=== PATIENT | female | born 1965 | race Caucasian/White ===

== ENCOUNTER 2018-11-03 21:12 | Emergency (ER) | payer MEDICAID ==
[2018-11-03 21:25] VITALS: BP 137/97; PULSE 71; RESP 16; TEMP 98; O2SAT 98
--- NOTE | 2018-11-03 21:37 | C.PDOC ---
History Of Present Illness 52 y/o female, with history of diabetes and regularly checks sugar daily, well controlled, presents to ED stating that since yesterday, she has been having an itchy rash all over her body except her face. States she has been taking benadryl which has been helping. States she 5 days ago she applied a homemade pain relieving paste she made from crushed motrin but discontinued it when she noticed redness and irritation to the area. Patient is not aware of any known allergies. Denies wheezing, lip swelling, tongue swelling, or SOB. Time Seen by Provider: 11/03/18 21:26 Chief Complaint (Nursing): Abnormal Skin Integrity History Per: Patient History/Exam Limitations: no limitations Onset/Duration Of Symptoms: Days Current Symptoms Are (Timing): Still Present Past Medical History Reviewed: Historical Data, Nursing Documentation, Vital Signs Vital Signs: Last Vital Signs Temp 98 F 11/03/18 21:24 Pulse 71 11/03/18 21:24 Resp 16 11/03/18 21:24 BP 137/97 H 11/03/18 21:24 Pulse Ox 98 11/03/18 21:24 Family History: States: No Known Family Hx - Social History Hx Alcohol Use: Yes Hx Substance Use: No - Immunization History Hx Tetanus Toxoid Vaccination: No Hx Influenza Vaccination: No Hx Pneumococcal Vaccination: No Review Of Systems Constitutional: Negative for: Fever, Chills, Weakness Eyes: Negative for: Redness (or scleral icterus) ENT: Negative for: Mouth Swelling Cardiovascular: Negative for: Chest Pain Respiratory: Negative for: Cough, Shortness of Breath Gastrointestinal: Negative for: Nausea, Vomiting, Diarrhea Genitourinary: Negative for: Dysuria, Hematuria Musculoskeletal: Negative for: Back Pain Skin: Positive for: Rash (generalized) Neurological: Negative for: Weakness, Numbness, Dizziness Physical Exam - Physical Exam Appears: Non-toxic, Toxic Skin: Warm, Dry, Rash (diffused dry papular rash to all extremities and torso; no hives, no vesicles or drainage) Eye(s): bilateral: Normal Inspection, PERRL, EOMI Ear(s): Bilateral: Normal Oral Mucosa: Moist Tongue: No Swelling Lips: No Swelling Throat: Normal, No Erythema, No Exudate, Other (Airway patent) Neck: Supple Chest: Symmetrical Cardiovascular: Rhythm Regular, No Murmur Respiratory: No Accessory Muscle Use, Other (Normal inspiratory effort) Gastrointestinal/Abdominal: Soft, No Distention Extremity: Bilateral: Atraumatic, Normal ROM Pulses: Left Radial: Normal, Right Radial: Normal Neurological/Psych: Oriented x3, Normal Speech (speaking full sentences) Gait: Steady ED Course And Treatment O2 Sat by Pulse Oximetry: 98 (RA) Pulse Ox Interpretation: Normal Medical Decision Making Medical Decision Making: Plan: --Prednisone Impression: Cutaneous skin allergic reaction without respiratory or mucosal involvement. No signs of anaphylaxis. Disposition - Disposition Referrals: Zarina La MD [Medical Doctor] - Disposition: HOME/ ROUTINE Disposition Time: 21:37 Condition: STABLE Additional Instructions: KEYLA STRAUSS, thank you for letting us take care of you today. Your provider was ED Physician Dr. Alonso/ JEREMIAS Vee and you were treated for ALLERGIC REACTION/RASH. The emergency medical care you received today was directed at your acute symptoms. If you were prescribed any medication, please fill it and take as directed. It may take several days for your symptoms to resolve. Return to the Emergency Department if your symptoms worsen, do not improve, or if you have any other problems. Please contact your doctor or call one of the physicians/clinics you have been referred to that are listed on the Patient Visit Information form that is included in your discharge packet. Bring any paperwork you were given at discharge with you along with any medications you are taking to your follow up visit. Our treatment cannot replace ongoing medical care by a primary care provider outside of the emergency department. Thank you for allowing the [facility] team to be part of your care today. 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 - Scribe Statement The provider has reviewed the documentation as recorded by the Chato Mckeon
== END 2018-11-03 22:04 | disposition home or self-care (01) ==
LOC: C.ER 21:12
DX: L23.9 Allergic contact dermatitis, unspecified cause (principal)